=== PATIENT | male | born 1995 | race Caucasian/White ===

== ENCOUNTER 2018-09-07 00:16 | Emergency (ER) | payer OTHER ==
[~2018-09-07] VITALS: Wt 56.5 kg
[2018-09-07] MEDS ORDERED: KETOROLAC 30 MG INJ IM STA (04:46)
--- NOTE | 2018-09-07 04:54 | ERD ---
ER Documentation Chief Complaint Chief Complaint bib mother / father for right ankle /leg pain, staple removal s/p surgery HPI This is a 23-year-old male who presents here to emerge department with complaints of right ankle pain. Denies headache, head injury, loss of consciousness, dizziness, neck pain, neck stiffness, throat pain, difficulty swallowing, difficulty breathing lying flat, shoulder pain, chest pain, back pain, abdominal pain, nausea, vomiting, constipation, diarrhea, urinary symptoms, loss of bowel and bladder control, trauma, injury, falls, difficulty walking due to pain, numbness or tingling sensation, calf pain, recent travel, recent major surgery in the last 3 weeks, calf pain, recent long travel, recent exposure to any illness, recent antibiotic use in the last 3 months, fever, chills, seizures. Past medical history: Surgical history: Social: Denies smoking, use of alcoholic beverages, use of illegal drugs. ROS All systems reviewed and are negative except as per history of present illness. Medications Home Meds Active Scripts Cyclobenzaprine Hcl* (Cyclobenzaprine Hcl*) 10 Mg Tablet, 10 MG PO Q8 PRN for MUSCLE SPASMS, #15 TAB Prov:PASILABAN,KLAR F 09/07/18 Ibuprofen* (Motrin*) 600 Mg Tab, 600 MG PO Q6H PRN for PAIN AND OR ELEVATED TEMP, #30 TAB Prov:PASILABAN,KLAR F 09/07/18 Allergies Allergies: Coded Allergies: No Known Allergy (Unverified , 09/07/18) PMhx/Soc Medical and Surgical Hx: pt denies Medical Hx, pt denies Surgical Hx Hx Alcohol Use: No Hx Substance Use: No Hx Tobacco Use: No Smoking Status: Never smoker Physical Exam Vitals Physical Exam Const: No acute distress Head: Atraumatic Eyes: Normal Conjunctiva ENT: Normal External Ears, Nose and Mouth. Neck: Full range of motion. No meningismus. Resp: Clear to auscultation bilaterally Cardio: Regular rate and rhythm, no murmurs Abd: Soft, non tender, non distended. Normal bowel sounds Skin: No petechiae or rashes Back: No midline or flank tenderness Ext: No cyanosis, or edema. Right ankle: Mild swelling without obvious deformity. There is good and full range of motion. No calf tenderness bilaterally. No neurovascular deficit. Neur: Awake and alert. No neurological deficits. Psych: Normal Mood and Affect Results 24 hrs Current Medications Medications Dose Sig/Mihaela Start Time Status Last (Trade) Ordered Route PRN Stop Time Admin Dose Reason Admin Ketorolac 30 mg ONCE STAT 09/07/18 DC 09/07/18 Tromethamine IM 04:46 04:53 (Toradol) 09/07/18 04:48 1 tab ONCE ONCE 09/07/18 DC 09/07/18 Acetaminophen PO 05:00 04:53 / 09/07/18 05:01 Hydrocodone Bitart ([place] (5/325)) Procedures/MDM Diagnostic tests: Patient is insisting x-ray of his right ankle. He also stated that he wants to be prescribed with oxycodone. X-ray of the right ankle: Unremarkable right ankle. Treatment: Toradol IM. [place] p.o. Re-evaluation: Denies pain. No neurovascular deficit. Differential diagnosis I have low suspicion for compartment syndrome, displaced fracture, fracture, DVT. Final diagnosis: Ankle pain. Prescription: Motrin. Flexeril. Follow-up with PCP in the next 24-48 hours. Come back here in the emergency department for any new symptoms or any worsening symptoms. All questions and concerns were answered. Patient and family members verbalized understanding and agreed with plan of care. Hemodynamically stable on discharge. Departure Diagnosis: Primary Impression: Ankle pain Condition: Stable Additional Instructions: Follow-up with PCP in the next 24-48 hours. Come back here in the emergency department for any new symptoms or any worsening symptoms. LIANNA FARMER September 07, 2018 04:54
[2018-09-07] MEDS ORDERED: HYDROCODONE/APAP (5/325) TAB PO ONE (05:00)
[2018-09-07] MEDS ORDERED: CYCL10TA7 PO (06:20)
[2018-09-07] MEDS ORDERED: IBUP-1542 PO (06:20)
[2018-09-07 06:45] VITALS: BP 121/76; PULSE 101; RESP 18
== END 2018-09-07 07:04 | disposition home or self-care (01) ==
LOC: FTE 00:16
DX: M25.571 Pain in right ankle and joints of right foot (principal)
CPT/HCPCS: 73610; 96372; J1885; Z7502; Z7610

== ENCOUNTER 2018-09-12 12:34 | Emergency (ER) | payer OTHER ==
[~2018-09-12] VITALS: Ht 154.9 cm; Wt 58.2 kg
[~2018-09-12 12:34] MED LIST: CYCL10TA7 PO; IBUP-1542 PO
[2018-09-12 12:37] VITALS: BP 126/72; PULSE 88; RESP 20; Ht 154.9 cm; Wt 58.2 kg
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
== END 2018-09-12 13:17 | disposition home or self-care (01) ==
LOC: E/R 12:34
DX: Z48.02 Encounter for removal of sutures (principal)
CPT/HCPCS: 99281